=== PATIENT | female | born 1965 | race Caucasian/White ===

== ENCOUNTER → 2017-02-28 | Outpatient (CLI) | payer OTHER ==
[~2017-02-28] MED LIST: FLEXERIL 10 MG10 MG PO; NORCO 10-325 T1 EACH PO; PRAVASTATIN SOD20 MG PO; SYNTHROID25 MCG PO; TYLENOL 325MG325 MG PO
== END ==
LOC: MAMO 02-09 10:00
DX: Z12.31 Encounter for screening mammogram for malignant neoplasm of breast (principal)
CPT/HCPCS: G0202

== ENCOUNTER → 2020-11-28 | Outpatient (CLI) | payer OTHER | LOC: MAMO 11-20 08:00 | DX: Z12.31 Encounter for screening mammogram for malignant neoplasm of breast (principal) | CPT/HCPCS: 77063; 77067 ==